=== PATIENT | male | born 1980 | race Hispanic/Latino ===

== ENCOUNTER → 2018-02-12 | Day surgery (SDC) | payer OTHER ==
[2018-02-11 11:18] LABS: BASOPHILS # (AUTO) 0.1 (0.0-0.1); BASOPHILS % 0.5 % (0.0-1.0); EOSINOPHILS # (AUTO) 0.1 (0.0-0.4); EOSINOPHILS % 0.7 % (0.0-6.0); HEMATOCRIT 43.2 % (38.2-49.6); HEMOGLOBIN 14.7 g/dL (14.0-18.0); LYMPHOCYTES % 32.1 % (18.0-39.1); MEAN CORPUSCULAR HEMOGLOBIN 30.1 pg (28-32); MEAN CORPUSCULAR VOLUME 88.5 fL (81-99); MONOCYTES # (AUTO) 0.7 (0.2-0.8); MONOCYTES % 7.3 % (4.4-11.3); NEUTROPHILS # (AUTO) 5.5 (2.1-6.9); NEUTROPHILS % 58.7 % (38.7-80.0); PLATELET COUNT 338 x10e3/uL (140-360); RED BLOOD COUNT 4.88 x10e6/uL (4.3-5.7); RED CELL DISTRIBUTION WIDTH 13.2 % (11.7-14.4)
[2018-02-11 11:35] LABS: ANION GAP 13.8 mmol/L (8-16); BLOOD UREA NITROGEN 7 mg/dL (7-26); BUN/CREATININE RATIO 8 (6-25); CALCIUM 9.5 mg/dL (8.4-10.2); CARBON DIOXIDE 25 mmol/L (22-29); CHLORIDE 104 mmol/L (98-107); EST GLOMERULAR FILTRATION RATE > 60 ML/MIN (60-); GLUCOSE 89 mg/dL (74-118); POTASSIUM 3.8 mmol/L (3.5-5.1); SODIUM 139 mmol/L (136-145)
[~2018-02-12] MED LIST: CEFAZOLIN SOD 1 GM VIAL ONE; DEXAMETHASONE SOD PHOS INJ 4 MG/ML VIAL ONE; FENTANYL CITRATE/PF 100MCG/2 ML INJ ONE; GLYCOPYRROLATE INJ 1MG/ 5 ML SYR ONE; KETOROLAC TROMETHAMINE 30 MG/ML VIAL ONE; LIDOCAINE HCL 2% LOCAL INJ 5 ML SDV VIAL INJ ONE; MIDAZOLAM HCL 2 MG/2 ML VIAL ONE; NEOSTIGMINE 5 MG/5ML SYR ONE; ONDANSETRON HCL INJ 2 MG/ML VIAL ONE; PROPOFOL IV EMULSION 10 MG/ML 20 ML VIAL ONE; ROCURONIUM BROMIDE 10 MG/ML 5ML VIAL ONE; SEVOFLURANE INHAL SOLN 250 ML PEN BTL ONE; SODIUM HYPOCHLORITE 0.25% 480 ML SOLN TOP ONE
--- NOTE | 2018-02-12 10:38 | Operative Report ---
DATE OF PROCEDURE: February 12, 2018 PREOPERATIVE DIAGNOSIS: Hematoma of the right posterior leg/calf area. POSTOPERATIVE DIAGNOSIS: Hematoma of the right posterior leg/calf area. PROCEDURE PERFORMED: Incision and drainage and recreation of hematoma of the right calf and debridement of necrotic tissue. ANESTHESIA: General. ESTIMATED BLOOD LOSS: Minimal. DRAINS: None. COMPLICATIONS: None. INDICATIONS AND FINDINGS: This patient is a 37-year-old male who had been hit by a heavy piece of metal they were cutting at work on January . The patient was seen at a local clinic, and then subsequently on January 29, 2018, returned to another clinic complaining of swelling. At that point, he had an MRI that revealed a fluid collection in the calf about 8 cm. Patient there was then subsequently referred to our office for further treatment. INTRAOPERATIVE FINDINGS: The patient had a hematoma of the right lower calf/posterior leg area. There was a central piece of necrotic skin that was excised. Then liquified hematoma, as well as a home necrotic fat mixed with the hematoma was debrided down to clean viable tissue. DESCRIPTION OF PROCEDURE: With the patient lying on the operating table in the supine position and after administration of general anesthesia, he was prepped and draped for incision and drainage of the hematoma of the right calf. The patient was placed in the prone position. A scab was removed from the skin in that area, and a small area of necrosis was excised. The cavity entered. Loculations broken down. The hematoma was drained. Then the necrotic fat along with the hematoma was excised. The cavity was then irrigated with saline solution, and then packed with a solution containing 0.25% sodium hydrochloride mixed with a Kerlix roll. Then sterile dressing was applied, pressure type. The patient tolerated the procedure well, and was taken to the recovery room in stable condition. Job#: [id number] PAULA
== END | disposition home or self-care (01) ==
LOC: OR 06:55
PROVIDERS: ATTEND Surgery
DX: S80.01XA Contusion of right knee, initial encounter (principal); W20.8XXA Other cause of strike by thrown, projected or falling object, initial encounter; Y93.89 Activity, other specified; Y92.89 Other specified places as the place of occurrence of the external cause; Y99.0 Civilian activity done for income or pay; Z01.812 Encounter for preprocedural laboratory examination; Z68.34 Body mass index [BMI] 34.0-34.9, adult
CPT/HCPCS: 10140; 36415; 80048; 85025; J0690; J1100; J1885; J2001; J2250; J2405; J3490